=== PATIENT | female | born 1970 | race Hispanic/Latino ===

== ENCOUNTER → 2016-10-08 | Outpatient (CLI) | payer BC ==
--- OUTSIDE RECORDS SUMMARY | 2016-10-08 09:33 | XMS REPORT | Continuity of Care Document ---
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 If you do not see the information that you expected, contact Release of Information in the Health Information Management department at [phone] for further assistance in locating additional records.[facility] Active Allergies and Adverse Reactions Not on File Current Medications Not on file Active Problems Not on file Social History Tobacco Use Types Packs/Day Years Used Date Never Assessed Plan of Care Health Maintenance Due Date Last Done Comments Physical (Comprehensive) 1978 Exam Pertussis Vaccine 1982 Tetanus Vaccine 1988 Cervical Cancer Screening 1992 Influenza Vaccine 03/27/2016 Results from Last 3 Months Not on file
--- NOTE | 2016-10-09 17:43 | Diagnostic Imaging Report ---
Bilateral screening mammogram. The current study was also evaluated with a Computer Aided Detection (CAD) system. INDICATION: Screening. No current complaints stated on the questionnaire. COMPARISON: 10/24/2013. FINDINGS: The breasts are composed of heterogeneously dense parenchyma which may decrease mammographic sensitivity. Scattered benign-appearing calcifications are seen. Compared to 2014 exam, there is generalized decrease in the overall density of the parenchyma. This results in increased nodularity of the breast parenchyma with subcentimeter focal asymmetry in the central slightly medial aspect of the left breast seen more prominent on the MLO and exaggerated lateral views. The right breast demonstrates also slight increased nodularity of the parenchyma without definitive focal lesion. IMPRESSION: There is slight decrease in the background density of the parenchyma, which is still heterogeneously dense and may decrease mammographic sensitivity. This however appears to be responsible for increased relative density of some areas in the parenchyma giving some new nodular appearance favored to be related to summation artifact. Bilateral ultrasound examination and focal compression views for central left breast asymmetry recommended. ACR BI-RADS Category 0: Incomplete. (Needs additional imaging evaluation). Result letter will be mailed to the patient. Note: At least 10% of breast cancer is not imaged by mammography. Dictated by: Dictated on workstation # [id number]
== END ==
LOC: RAD 09:31
PROVIDERS: ATTEND Family Medicine
DX: Z12.31 Encounter for screening mammogram for malignant neoplasm of breast (principal)
CPT/HCPCS: 77067

== ENCOUNTER → 2016-10-20 | Outpatient (CLI) | payer BC ==
--- NOTE | 2016-10-20 12:48 | Diagnostic Imaging Report ---
EXAMINATION: Left breast diagnostic. CAD is utilized. The current study was also evaluated with a Computer Aided Detection (CAD) system. INDICATION: Asymmetries in the medial and posterior central aspects of the left breast. Findings: Focal compression views and true lateral projection images are performed and demonstrate dense background parenchyma with no definite confirmed underlying lesions seen. The asymmetries appears less prominent, in favor of summation artifact of parenchyma. IMPRESSION: Less prominent asymmetries with dense parenchyma background in favor of summation artifact of parenchyma. Ultrasound evaluation pending. BI-RADS 0. Dictated by: Dictated on workstation # [id number]
--- NOTE | 2016-10-20 20:57 | Diagnostic Imaging Report ---
EXAM: Bilateral breast ultrasound. INDICATION: Left breast asymmetries. Dense breasts. FINDINGS: The four-quadrants and retroareolar regions of each breast were scanned with no underlying abnormality seen. IMPRESSION: Negative study. A six-month followup left breast mammogram is recommended to insure stability or resolution of the asymmetries seen. BI-RADS 3. Dictated by: Dictated on workstation # [id number]
== END ==
LOC: RAD 07:47
PROVIDERS: ATTEND Family Medicine
DX: R92.8 Other abnormal and inconclusive findings on diagnostic imaging of breast (principal)

== ENCOUNTER → 2017-12-15 | Outpatient (CLI) | payer BC ==
--- NOTE | 2017-12-15 13:23 | Diagnostic Imaging Report ---
INDICATION: Positive TB skin test. PA and lateral views of chest were obtained. FINDINGS: The heart size is normal. Mediastinum is unremarkable. There is no pleural effusion, pneumothorax or pneumonia. There is no radiographic evidence of tuberculosis. IMPRESSION: No acute cardiopulmonary abnormality. Dictated by: Dictated on workstation # [id number]
== END ==
LOC: RAD 11:50
PROVIDERS: ATTEND Family Medicine
DX: Z11.1 Encounter for screening for respiratory tuberculosis (principal); Z86.11 Personal history of tuberculosis
CPT/HCPCS: 71046

== ENCOUNTER → 2018-01-22 | Outpatient (CLI) | payer BC ==
--- NOTE | 2018-01-22 08:44 | Diagnostic Imaging Report ---
Indication: Bilateral breast nodularity. This study is performed for followup. Correlation is made with prior mammogram from 10/08/2016 and 10/24/2013. 2-D and 3-D bilateral diagnostic mammography was performed. This included bilateral CC and MLO views as well as left-sided spot compression CC and rolled CC views. Both breasts are heterogeneous and dense, limiting the sensitivity of mammography. No dominant mass or malignant appearing microcalcifications are seen. There are benign calcifications present. Axillae unremarkable. Impression: BI-RADS category 2 No mammographic features suspicious for malignancy are identified. Dictated by: Dictated on workstation # [id number]
== END ==
LOC: RAD 08:05
PROVIDERS: ATTEND Family Medicine
DX: N63.11 Unspecified lump in the right breast, upper outer quadrant (principal); N63.12 Unspecified lump in the right breast, upper inner quadrant
CPT/HCPCS: 77066

== ENCOUNTER → 2020-04-13 | Outpatient (CLI) | payer BC | LOC: LABNPT 05:57 | PROVIDERS: ATTEND Family Medicine | DX: J02.9 Acute pharyngitis, unspecified (principal); R53.83 Other fatigue; Z20.828 Contact with and (suspected) exposure to other viral communicable diseases | CPT/HCPCS: 87635 ==

== ENCOUNTER → 2020-05-31 | Outpatient (CLI) | payer BC | LOC: LABNPT 08:42 | PROVIDERS: ATTEND Family Medicine | DX: J06.9 Acute upper respiratory infection, unspecified (principal); R42 Dizziness and giddiness; Z20.828 Contact with and (suspected) exposure to other viral communicable diseases | CPT/HCPCS: 87635 ==

== ENCOUNTER → 2020-09-07 | Outpatient (CLI) | payer BC ==
--- NOTE | 2020-09-09 15:33 | Diagnostic Imaging Report ---
INDICATION: Screening. At this time there are no current complaints. EXAMINATION: Digital mammogram bilateral screening. 3D tomographic images were obtained and reviewed. The current study was also evaluated with a Computer Aided Detection (CAD) system. COMPARISON: This study was compared to the prior exams of 01/22/2018, 10/08/2016 and 10/24/2013. FINDINGS: The fibroglandular tissue in both breasts is heterogeneously dense. This does limit the sensitivity of this exam. When compared to the previous studies there has been no significant change. There are a number of fine microcalcifications scattered throughout the left breast and a few microcalcifications in the right breast. These microcalcifications seem stable when compared to the prior exams. There is no primary or secondary sign of malignancy noted. IMPRESSION: 1. There is no evidence for malignancy. 2. The patient should have her annual bilateral screening mammogram on schedule in August 2021. ACR BI-RADS Category 1: Negative. Result letter will be mailed to the patient. Note: At least 10% of breast cancer is not imaged by mammography. Dictated by: Dictated on workstation # [id number]
== END ==
LOC: RAD 15:00
PROVIDERS: ATTEND Family Medicine
DX: Z12.31 Encounter for screening mammogram for malignant neoplasm of breast (principal)
CPT/HCPCS: 77063; 77067

== ENCOUNTER → 2022-07-18 | Outpatient (CLI) | payer BC ==
--- NOTE | 2022-07-18 10:21 | Diagnostic Imaging Report ---
Indication: Routine screening. Comparison is made with prior mammograms from 09/07/2020 and 01/22/2018. 2-D and 3-D bilateral screening mammography was performed with CAD. Both breasts are heterogeneously dense, limiting the sensitivity of mammography. The parenchymal pattern is stable. There are scattered benign calcifications. No mass or malignant-appearing microcalcifications are seen. Axillae are unremarkable. IMPRESSION: BI-RADS Category 2 No mammographic features suspicious for malignancy are identified. ACR BI-RADS Category 2: Benign findings. Result letter will be mailed to the patient. Note: At least 10% of breast cancer is not imaged by mammography. Dictated by: Dictated on workstation # [id number]
== END ==
LOC: RAD 09:02
PROVIDERS: ATTEND Family Medicine
DX: Z12.31 Encounter for screening mammogram for malignant neoplasm of breast (principal)
CPT/HCPCS: 77063; 77067